=== PATIENT | male | born 1980 | race Caucasian/White ===

== ENCOUNTER 2019-08-06 18:20 | Emergency (ER) | payer OTHER ==
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
[2019-08-06 18:58] LABS: Hematocrit 49 % (42-52); Hemoglobin 17.2 g/dL (14.0-18.0); Mean Corpuscular HGB Conc 35 g/dL (31-36); Mean Corpuscular Hemoglobin 30 pg (27-31); Mean Corpuscular Volume 87 fL (80-94); Mean Platelet Volume 8.4 fL (7.4-10.4); Platelet Count 275 10^3/uL (150-450); Red Blood Count 5.65 10^6 /uL (4.18-5.48); Red Cell Distribution Width 14 % (10-15); White Blood Count 38.1 10^3/uL (3.5-10.8)
[2019-08-06 19:11] LABS: Albumin 4.8 g/dL (3.2-5.2); Potassium 4.5 mmol/L (3.5-5.0); Total Bilirubin 0.5 mg/dL (0.2-1.0)
[2019-08-06 19:17] LABS: Albumin/Globulin Ratio 1.4 (1-3); EGFR African American 56.7 (>60); EGFR Non-African American 46.8 (>60); Globulin 3.4 g/dL (2-4); Total Protein 8.2 g/dL (6.4-8.9)
[2019-08-06] MEDS ORDERED: NS 0.9% 1000 ML** 1,000 ML IV ONE (19:37)
[2019-08-06 19:39] LABS: ABS Basophils 0.1 10^3/ul (0-0.2); ABS Lymphocytes 1.9 10^3/ul (1.0-4.8); ABS Monocytes 3.7 10^3/ul (0-0.8); ABS Neutrophils 32.4 10^3/ul (1.5-7.7)
[2019-08-06] MEDS ORDERED: Iodixanol* (CONTRAST) 320 MG/ML 100 ML SDV IV ONE (19:39)
[2019-08-06] MEDS ORDERED: Acetaminophen TAB* 325 MG PO ONE (21:10)
[2019-08-06] MEDS ORDERED: Cyclobenzaprine TAB* 10 MG PO ONE (21:11)
[2019-08-06 21:34] LABS: Urine Appearance Cloudy; Urine Bilirubin Negative (Negative); Urine Blood 3+ (Negative); Urine Color Amber; Urine Glucose Negative (Negative); Urine Ketones Negative (Negative); Urine Nitrite Negative (Negative); Urine Protein 2+(100 mg/dL) (Negative); Urine Specific Gravity 1.014 (1.010-1.030); Urine Urobilinogen Negative (Negative)
[2019-08-06 21:38] LABS: Urine Bacteria Absent (Absent); Urine Red Blood Cell 3+(>10/hpf) (Absent); Urine White Blood Cell 1+(6-10/hpf) (Absent)
[2019-08-06 22:02] VITALS: BP 138/62
== END 2019-08-06 22:02 | disposition home or self-care (01) ==
LOC: ED 18:20
DX: M79.18 Myalgia, other site (principal); Y04.8XXA Assault by other bodily force, initial encounter; Y92.149 Unspecified place in prison as the place of occurrence of the external cause; F17.200 Nicotine dependence, unspecified, uncomplicated; N20.0 Calculus of kidney
CPT/HCPCS: 36415; 71260; 74177; 80053; 81003; 81015; 85025; 85060; 87086; 99284; A9270-GY; Q9967